=== PATIENT | male | born 2000 | race Caucasian/White ===

== ENCOUNTER 2018-12-09 06:54 | Emergency (ER) | payer BC ==
[2018-12-09] MEDS ORDERED: ONDANSETRON 4 MG/2 ML VIAL ONE (07:04)
--- NOTE | 2018-12-09 07:04 | EDPHY ---
H & P Time Seen by Provider: 12/09/18 07:02 HPI/ROS: CHIEF COMPLAINT: Vomiting and diarrhea HISTORY OF PRESENT ILLNESS: [place] well yesterday, awakened at 2:30 a.m. With multiple episodes of vomiting and diarrhea. Not better or worse with anything. No hematemesis or melena. Associated with feeling hot and sweaty around 9:00 p.m. Yesterday. No recent foreign travel. Symptoms are severe. REVIEW OF SYSTEMS: Eye: no change in vision ENT: no sore throat Cardiac: no chest pain or syncope Pulmonary: no cough or SOB Abdomen: HPI Musculoskeletal: no back pain Skin: no rash Neuro: no headache Constitutional: HPI : no urinary symptoms, no testicular symptoms. A comprehensive 10 point review of systems is otherwise negative aside from elements mentioned in the history of present illness. PAST MEDICAL HISTORY: Negative, no previous abdominal surgeries. Social history: Works doing [employer] General Appearance: Alert and conversant, cooperative. Eyes: No scleral icterus. ENT, Mouth: Dry mucous membranes. Respiratory: Normal respiratory effort, breath sounds equal, lungs are clear to auscultation. Cardiovascular: Regular rate and rhythm. Gastrointestinal: Abdomen is soft and non tender. Normal male . Neurological: Alert, face symmetric, normal motor and sensory in extremities. Skin: Warm and dry, no rashes. Musculoskeletal: No peripheral edema. Psychiatric: Not agitated. Emergency Department course/MDM: Likely viral or food related. Unlikely to be acute surgical emergent process. I think that diabetes or GI bleed or bowel obstruction are unlikely. Zofran 4 and 2 L normal saline IV. 800: Improving, abdomen soft and nontender on examination. Smoking Status: Never smoked Constitutional: Initial Vital Signs Temperature (C) 36.5 C 12/09/18 06:54 Heart Rate 75 12/09/18 06:54 Respiratory Rate 22 H 12/09/18 06:54 Blood Pressure 90/75 L 12/09/18 06:54 O2 Sat (%) 98 12/09/18 06:54 O2 Delivery Mode Room Air Allergies/Adverse Reactions: No Known Allergies Allergy (Unverified 12/09/18 06:57) Home Medications: Medication Instructions Recorded NK [No Known Home Meds] 12/09/18 Medical Decision Making - Data Points Medications Given: Discontinued Medications Sodium Chloride (Ns) 1,000 mls @ 0 mls/hr IV ONCE ONE PRN Reason: Wide Open Stop: 12/09/18 07:08 Last Admin: 12/09/18 07:16 Dose: 1,000 mls Sodium Chloride (Ns) 1,000 mls @ 0 mls/hr IV EDNOW ONE; Wide Open PRN Reason: Protocol Stop: 12/09/18 07:09 Last Admin: 12/09/18 07:43 Dose: 1,000 mls Ondansetron HCl (Zofran) 4 mg IVP EDNOW ONE Stop: 12/09/18 07:08 Last Admin: 12/09/18 07:16 Dose: 4 mg Departure - Departure Disposition: Home, Routine, Self-Care Clinical Impression: Dehydration Abdominal pain Qualifiers: Abdominal location: unspecified location Qualified Code(s): R10.9 - Unspecified abdominal pain Nausea & vomiting Qualifiers: Vomiting type: unspecified Vomiting Intractability: non-intractable Qualified Code(s): R11.2 - Nausea with vomiting, unspecified Condition: Good Instructions: Dehydration (ED), Acute Nausea and Vomiting (ED) Additional Instructions: You need to return to the emergency department immediately if you develop worsening or severe pain, fever, vomiting or you are not completely better in 8- 12 hours. Referrals: Janki Smith, DO [Doctor of Osteopathy] - As per Instructions Stand Alone Forms: Work Excuse
[2018-12-09] MEDS ORDERED: NS 1,000 ML IV ONE ×3 (07:07→07:08)
[2018-12-09] MEDS ORDERED: ONDANSETRON 4 MG/2 ML VIAL IVP ONE (07:07)
[2018-12-09 09:15] VITALS: BP 97/55
== END 2018-12-09 09:13 | disposition home or self-care (01) ==
DX: R11.2 Nausea with vomiting, unspecified (principal); R19.7 Diarrhea, unspecified; E86.9 Volume depletion, unspecified
CPT/HCPCS: 96374; J2405